=== PATIENT | male | born 1960 | race Caucasian/White ===

== ENCOUNTER 2017-01-30 06:29 | Inpatient (IN) ==
[2017-01-30] MEDS ORDERED: cefTRIAXone 1,000 MG in SODIUM CHLORIDE 0.9% 100 ML IV STA (07:15)
[2017-01-30] MEDS ORDERED: SODIUM CHLORIDE 0.9% 500 ML IV STA (07:15)
[2017-01-30] MEDS ORDERED: cefTRIAXone 1,000 MG VIAL ONE (07:51)
[2017-01-30 08:22] LABS: Basophils % 0.2 % (0.0-0.8); Hematocrit 37.6 VOL% (42.0-52.0); Hemoglobin 13.5 GM/DL (14.0-18.0); Immature Granulocytes % 1.6 %; Immature Granulocytes Absolute 0.32 #; Lymphocytes % 4.9 % (21.2-54.2); Mean Corpuscular HGB Conc 35.9 GM/DL (32-36); Mean Corpuscular Hemoglobin 30 PG (27-34); Mean Corpuscular Volume 83.4 FL (87-102); Mean Platelet Volume 10.7 FL (9.6-12.0); Monocytes # 0.9 10*3/uL (0.11-0.8); Monocytes % 4.7 % (1.7-12.7); Neutrophils # 17.2 10*3/uL (1.4-7.4); Neutrophils % 88.6 % (38.7-73.9); Platelet Count 169 T/CUMM (130-400); Red Blood Count 4.51 MC/CUMM (3.8-5.5); Red Cell Distribution Width 13.4 % (9.3-17.3); White Blood Count 19.4 T/CUMM (4-12)
[2017-01-30] MEDS ORDERED: LEVOFLOXACIN INJ 750 MG in PREMIX 1 EACH IV STA (08:38)
[2017-01-30 08:42] LABS: Albumin 2.9 G/DL (3.4-5.0); Bilirubin,Total 1.6 MG/DL (0.2-1.0); Calcium 7.8 MG/DL (8.5-10.1); Osmolality,Calculated 274.2 MOS/KG (273-304); Potassium 3.6 MMOL/L (3.5-5.1); Total Protein 5.9 G/DL (6.4-8.3)
[2017-01-30 09:05] LABS: Band Neutrophils 6 % (0-10); Hypochromasia 1+; Lymphocytes 4 % (20-55); Microcytosis Slight; Platelet Estimate Adequate; Segmented Neutrophils 87 % (50-85); Total Cells Counted 100
[2017-01-30 09:41] LABS: Apearance,Urine CLOUDY (Clear); Bacteria,Urine Occasional /HPF (Few); Bilirubin,Urine Negative (Negative); Blood, Urine Large mg/dL (Negative); Glucose,Urine (UA) >=500 mg/dL (Negative); Ketones,Urine 20 mg/dL (Negative); Mucus,Urine Occasional /LPF (Occasional); Nitrite,Urine Positive (Negative); Protein,Urine 30 MG/DL; RBC,Urine 144 /HPF (0-4); Squamous Epithelial Cell,Urine Occasional /HPF (0-10); Urine Color Yellow (Yellow); Urine Specific Gravity 1.016 (1.001-1.035); WBC,Urine 215 /HPF (0-6)
[2017-01-30 10:51] LABS: Sedimentation Rate-Westergren 36 MM/HR (0-20)
[2017-01-30] MEDS ORDERED: MORPHINE 2 MG/1 ML SYRINGE IV PRN (11:13)
[2017-01-30] MEDS ORDERED: ONDANSETRON 4 MG/2 ML VIAL IV PRN (11:13)
[2017-01-30] MEDS ORDERED: SODIUM CHLORIDE 0.9% 3,800 ML IV ONE (11:23)
[2017-01-30] MEDS ORDERED: GLUCAGON 1 MG VIAL IM PRN (11:23)
[2017-01-30] MEDS ORDERED: POTASSIUM CHLORIDE RIDER 10 MEQ in PREMIX 1 EACH IV PRN (11:23)
[2017-01-30] MEDS ORDERED: MAGNESIUM SULF RIDER 4 GM in PREMIX 1 EACH IV PRN (11:23)
[2017-01-30] MEDS ORDERED: DEXTROSE 50% 25 GM/50 ML VIAL IV PRN (11:23)
[2017-01-30] MEDS ORDERED: MAGNESIUM SULF RIDER 2 GM in PREMIX 1 EACH IV PRN (11:23)
[2017-01-30] MEDS ORDERED: LEVOFLOXACIN INJ 500 MG in PREMIX 1 EACH IV SCH (11:30)
[2017-01-30 11:40] LABS: Risk Ratio 2.2; Thyroid Stimulating Hormone 1.26 uIU/ml (0.358-3.74)
[2017-01-30] MEDS ORDERED: INSULIN REGULAR 100 UNIT/ML ONE (12:34)
[2017-01-30] MEDS: INSULIN REGULAR 100 UNIT/ML SUBCUT SCH ×3 (12:35→21:42)
[2017-01-30] MEDS: SODIUM CHLORIDE 0.45% 1,000 ML IV SCH (12:48)
[2017-01-30] MEDS: metroNIDAZOLE INJ 500 MG in PREMIX 1 EACH IV SCH ×3 (12:50→23:58)
[2017-01-30] MEDS ORDERED: SODIUM CHLORIDE 0.9% 100 ML IV ONE (14:23)
[2017-01-30] MEDS ORDERED: AMPICILLIN/SULBACTAM 3,000 MG VIAL ONE (14:23)
[2017-01-30] MEDS: AMPICILLIN/SULBACTAM 3,000 MG in SODIUM CHLORIDE 0.9% 100 ML IV SCH ×2 (14:30→21:47)
[2017-01-30] MEDS: ENOXAPARIN 40 MG/0.4 ML SYRINGE SUBCUT SCH (21:50)
[2017-01-31] MEDS: SODIUM CHLORIDE 0.45% 1,000 ML IV SCH ×3 (04:57→23:58)
[2017-01-31] MEDS: AMPICILLIN/SULBACTAM 3,000 MG in SODIUM CHLORIDE 0.9% 100 ML IV SCH (04:57)
[2017-01-31] MEDS: metroNIDAZOLE INJ 500 MG in PREMIX 1 EACH IV SCH ×2 (05:43→11:24)
[2017-01-31 05:49] LABS: Basophils % 0.3 % (0.0-0.8); Eosinophils # 0.1 10*3/uL (0.0-0.87); Eosinophils % 0.6 % (0.00-10.9); Hematocrit 36.3 VOL% (42.0-52.0); Hemoglobin 12.8 GM/DL (14.0-18.0); Immature Granulocytes % 0.4 %; Immature Granulocytes Absolute 0.04 #; Lymphocytes # 0.8 10*3/uL (1.4-4.0); Lymphocytes % 7.8 % (21.2-54.2); Mean Corpuscular HGB Conc 35.3 GM/DL (32-36); Mean Corpuscular Hemoglobin 30 PG (27-34); Mean Corpuscular Volume 83.8 FL (87-102); Mean Platelet Volume 10.7 FL (9.6-12.0); Monocytes # 0.5 10*3/uL (0.11-0.8); Monocytes % 5.2 % (1.7-12.7); Neutrophils # 8.2 10*3/uL (1.4-7.4); Neutrophils % 85.7 % (38.7-73.9); Platelet Count 145 T/CUMM (130-400); Red Blood Count 4.33 MC/CUMM (3.8-5.5); Red Cell Distribution Width 13.4 % (9.3-17.3); White Blood Count 9.6 T/CUMM (4-12)
[2017-01-31 06:14] LABS: Albumin 2.6 G/DL (3.4-5.0); Calcium 7.8 MG/DL (8.5-10.1); Magnesium 1.8 MG/DL (1.8-2.4); Osmolality,Calculated 276.1 MOS/KG (273-304); Potassium 3.7 MMOL/L (3.5-5.1); Total Protein 5.5 G/DL (6.4-8.3)
[2017-01-31] MEDS ORDERED: PANTOPRAZOLE 40 MG TABLET PO SCH (09:00)
[2017-01-31] MEDS: INSULIN REGULAR 100 UNIT/ML SUBCUT SCH ×4 (09:18→21:32)
[2017-01-31] MEDS ORDERED: LACTULOSE 20 GM/30 ML UDCUP PO PRN (10:47)
[2017-01-31] MEDS: PIOGLITAZONE 15 MG TABLET PO SCH (11:22)
[2017-01-31] MEDS: LOSARTAN 50 MG TABLET PO SCH (11:23)
[2017-01-31] MEDS: METOPROLOL TARTRATE 50 MG TABLET PO SCH ×2 (11:23→20:23)
[2017-01-31] MEDS: MAGNESIUM CHLORIDE 64 MG TABLET PO SCH (11:24)
[2017-01-31] MEDS: LEVOFLOXACIN INJ 500 MG in PREMIX 1 EACH IV SCH (12:40)
[2017-01-31] MEDS: ATORVASTATIN 20 MG TABLET PO SCH (20:22)
[2017-01-31] MEDS: FENOFIBRATE 145 MG TABLET PO SCH (20:22)
[2017-01-31] MEDS: sitaGLIPtin 25 MG TABLET PO SCH (20:23)
[2017-01-31] MEDS: metFORMIN 500 MG TABLET PO SCH (20:24)
[2017-01-31] MEDS: PANTOPRAZOLE 40 MG TABLET PO SCH (20:24)
[2017-01-31] MEDS: ENOXAPARIN 40 MG/0.4 ML SYRINGE SUBCUT SCH (20:25)
[2017-02-01 06:45] LABS: Basophils % 0.2 % (0.0-0.8); Hematocrit 37.2 VOL% (42.0-52.0); Hemoglobin 13.2 GM/DL (14.0-18.0); Immature Granulocytes Absolute 0.05 #; Lymphocytes # 0.7 10*3/uL (1.4-4.0); Lymphocytes % 13.4 % (21.2-54.2); Mean Corpuscular HGB Conc 35.5 GM/DL (32-36); Mean Corpuscular Hemoglobin 29 PG (27-34); Mean Corpuscular Volume 81.6 FL (87-102); Mean Platelet Volume 10.7 FL (9.6-12.0); Monocytes # 0.5 10*3/uL (0.11-0.8); Monocytes % 10.1 % (1.7-12.7); Neutrophils # 3.9 10*3/uL (1.4-7.4); Neutrophils % 75.3 % (38.7-73.9); Platelet Count 159 T/CUMM (130-400); Red Blood Count 4.56 MC/CUMM (3.8-5.5); Red Cell Distribution Width 13.1 % (9.3-17.3); White Blood Count 5.1 T/CUMM (4-12)
[2017-02-01 06:59] LABS: Calcium 7.9 MG/DL (8.5-10.1); Osmolality,Calculated 269.4 MOS/KG (273-304); Potassium 3.7 MMOL/L (3.5-5.1)
[2017-02-01] MEDS: PANTOPRAZOLE 40 MG TABLET PO SCH ×2 (10:04→20:39)
[2017-02-01] MEDS: METOPROLOL TARTRATE 50 MG TABLET PO SCH ×2 (10:04→20:39)
[2017-02-01] MEDS: metFORMIN 500 MG TABLET PO SCH ×2 (10:04→20:39)
[2017-02-01] MEDS: sitaGLIPtin 25 MG TABLET PO SCH ×2 (10:04→20:39)
[2017-02-01] MEDS: LOSARTAN 50 MG TABLET PO SCH (10:04)
[2017-02-01] MEDS: MAGNESIUM CHLORIDE 64 MG TABLET PO SCH (10:04)
[2017-02-01] MEDS: PIOGLITAZONE 15 MG TABLET PO SCH (10:04)
[2017-02-01] MEDS: INSULIN REGULAR 100 UNIT/ML SUBCUT SCH ×4 (10:05→23:11)
[2017-02-01] MEDS: LEVOFLOXACIN INJ 500 MG in PREMIX 1 EACH IV SCH (10:05)
[2017-02-01] MEDS ORDERED: GENTAMICIN IV ONE (11:00)
[2017-02-01] MEDS ORDERED: SODIUM CHLORIDE 0.9% IV ONE (11:00)
[2017-02-01] MEDS ORDERED: SODIUM CHLORIDE 0.9% 1,000 ML IV SCH ×2 (11:00→16:00)
[2017-02-01] MEDS: SODIUM CHLORIDE 0.45% 1,000 ML IV SCH (11:20)
[2017-02-01] MEDS ORDERED: VANCOMYCIN INJ 1,750 MG in SODIUM CHLORIDE 0.9% 500 ML IV ONE (11:30)
[2017-02-01] MEDS: FENOFIBRATE 145 MG TABLET PO SCH (20:39)
[2017-02-01] MEDS: ATORVASTATIN 20 MG TABLET PO SCH (20:42)
[2017-02-01] MEDS: ENOXAPARIN 40 MG/0.4 ML SYRINGE SUBCUT SCH (20:43)
[2017-02-02 05:44] LABS: Basophils % 0.4 % (0.0-0.8); Eosinophils # 0.1 10*3/uL (0.0-0.87); Eosinophils % 1.8 % (0.00-10.9); Hematocrit 36.4 VOL% (42.0-52.0); Hemoglobin 13.1 GM/DL (14.0-18.0); Immature Granulocytes % 1.1 %; Immature Granulocytes Absolute 0.05 #; Lymphocytes # 1.3 10*3/uL (1.4-4.0); Lymphocytes % 28.3 % (21.2-54.2); Mean Corpuscular Hemoglobin 30 PG (27-34); Mean Corpuscular Volume 82.9 FL (87-102); Mean Platelet Volume 10.2 FL (9.6-12.0); Monocytes # 0.8 10*3/uL (0.11-0.8); Monocytes % 17.1 % (1.7-12.7); Neutrophils # 2.3 10*3/uL (1.4-7.4); Neutrophils % 51.3 % (38.7-73.9); Platelet Count 162 T/CUMM (130-400); Red Blood Count 4.39 MC/CUMM (3.8-5.5); Red Cell Distribution Width 13.4 % (9.3-17.3); White Blood Count 4.6 T/CUMM (4-12)
[2017-02-02 06:11] LABS: Band Neutrophils 5 % (0-10); Eosinophils 3 % (0-10); Giant Platelets Few; Hypochromasia 1+; Lymphocytes 26 % (20-55); Microcytosis Slight; Platelet Estimate Normal; Segmented Neutrophils 48 % (50-85); Total Cells Counted 100
[2017-02-02 06:23] LABS: Calcium 8.4 MG/DL (8.5-10.1); Osmolality,Calculated 276.8 MOS/KG (273-304); Potassium 3.8 MMOL/L (3.5-5.1)
[2017-02-02] MEDS: LEVOFLOXACIN INJ 500 MG in PREMIX 1 EACH IV SCH (08:36)
[2017-02-02] MEDS: MAGNESIUM CHLORIDE 64 MG TABLET PO SCH (08:39)
[2017-02-02] MEDS: LOSARTAN 50 MG TABLET PO SCH (08:40)
[2017-02-02] MEDS: METOPROLOL TARTRATE 50 MG TABLET PO SCH ×2 (08:40→20:50)
[2017-02-02] MEDS: metFORMIN 500 MG TABLET PO SCH ×2 (08:40→20:50)
[2017-02-02] MEDS: PANTOPRAZOLE 40 MG TABLET PO SCH ×2 (08:40→20:50)
[2017-02-02] MEDS: sitaGLIPtin 25 MG TABLET PO SCH ×2 (08:40→20:49)
[2017-02-02] MEDS: PIOGLITAZONE 15 MG TABLET PO SCH (08:40)
[2017-02-02] MEDS: INSULIN REGULAR 100 UNIT/ML SUBCUT SCH ×4 (08:42→22:58)
[2017-02-02] MEDS: FENOFIBRATE 145 MG TABLET PO SCH (20:50)
[2017-02-02] MEDS: ENOXAPARIN 40 MG/0.4 ML SYRINGE SUBCUT SCH (20:50)
[2017-02-02] MEDS: ATORVASTATIN 20 MG TABLET PO SCH (20:50)
[2017-02-03 07:48] VITALS: BP 116/63
[2017-02-03] MEDS: INSULIN REGULAR 100 UNIT/ML SUBCUT SCH (09:40)
[2017-02-03] MEDS: sitaGLIPtin 25 MG TABLET PO SCH (09:41)
[2017-02-03] MEDS: METOPROLOL TARTRATE 50 MG TABLET PO SCH (09:42)
[2017-02-03] MEDS: metFORMIN 500 MG TABLET PO SCH (09:42)
[2017-02-03] MEDS: PANTOPRAZOLE 40 MG TABLET PO SCH (09:42)
[2017-02-03] MEDS: MAGNESIUM CHLORIDE 64 MG TABLET PO SCH (09:42)
[2017-02-03] MEDS: LEVOFLOXACIN INJ 500 MG in PREMIX 1 EACH IV SCH (09:42)
[2017-02-03] MEDS: LOSARTAN 50 MG TABLET PO SCH (09:42)
[2017-02-03] MEDS: PIOGLITAZONE 15 MG TABLET PO SCH (09:42)
== END 2017-02-03 11:25 | disposition home or self-care (01) | DRG 872 ==
LOC: EDBD → EDUNIT# → N.ED 06:29 → SUATTDRO 10:35 → N.EDINP 10:35 → N.2E 16:06
PROVIDERS: ADMIT Internal Medicine Geriatric Medicine; ATTEND Internal Medicine